=== PATIENT | female | born 2000 | race Caucasian/White ===

== ENCOUNTER → 2020-06-14 09:30 | Outpatient (BNVA) | payer OTHER, SELFPAY | PROVIDERS: Visit Provider Physician Assistant | DX: M72.2 Plantar fascial fibromatosis (principal) | CPT/HCPCS: 99203 ==

== ENCOUNTER 2020-10-24 16:29 | Emergency (ER) | payer OTHER, SELFPAY ==
--- NOTE | 2020-10-24 16:57 | PC.NURSE ---
THIS E [employer]ER[employer] ARCHITECT ESCORTS PATIENT INTO TRIAGE ROOM UPON ARRIVAL TO CLEAN AND REDRESS LACERATION TO FINGER. NON-ADHESIVE,STERILE GAUZE, AND WRAPPED. WHEN UNCOVERED BLEEDING UNCONTROLLED. BANDAGE CURRENTLY SHOWING NO SIGNS OF BLEEDING UNDERNEATH.
[2020-10-24 19:45] VITALS: BP 111/64; PULSE 76; RESP 16; TEMP 36.7; O2SAT 100; BMI 29.7
[2020-10-24] MEDS: Ibuprofen 600 MG TABLET PO (20:19)
[2020-10-24] MEDS: Lidocaine HCl 1 % MPF 5 ML VIAL SUBCUT (20:19)
--- NOTE | 2020-10-24 20:26 | ED.WOUNDLAC ---
HPI - Wound/Laceration General Chief Complaint: Wound/Laceration Stated Complaint: FINGER LAC Time Seen by Provider: 10/24/20 20:04 Source: patient Mode of arrival: ambulatory Limitations: no limitations History of Present Illness HPI narrative: 20-year-old female presenting to the ED with complaints of laceration to her left hand middle finger after attempting to stab ice cream to soften it prior to arrival. Denies any other symptoms complaints or concerns. Reports she is up-to-date on tetanus. Onset (ago): hour(s) (Few hours prior to arrival) Location: other (Left hand middle finger) Place: home Patient tetanus UTD: Yes Context: accidental Associated symptoms: pain Treatments prior to arrival: bandage Related Data Previous Rx's Medication Instructions Recorded boot 1 mg .ROUTE .qhs #1 units 06/14/20 ibuprofen 800 mg PO Q8H PRN #14 tab 10/24/20 oxycodone-acetaminophen [Percocet] 1 tab PO Q6H PRN #10 tab 10/24/20 Allergies Allergy/AdvReac Type Severity Reaction Status Date / Time No Known Allergies Allergy Verified 06/14/20 09:36 Review of Systems Review of Systems: Constitutional : No Fever, No Chills, Cardiovascular : No Chest Pain, No SOB Respiratory : No Dyspnea Gastrointestinal : No abdominal pain Musculoskeletal : No Joint Swelling Skin : positive skin laceration, No Foreign bodies, No rash, No surrounding erythema Neuro : No Weakness, No Numbness/tingling Psych : No SI/HI/thoughts of self injury Yes all other systems are reviewed and are negative [facility] Past Medical History Attestation statement: The following information was validated with the patient. Surgical History [place] teeth extracted Social History Social History Alcohol intake: never Smoked in Last 30 Days: No Use of substances other than those prescribed or required for medical reasons: No Any prior treatment program specific to substance use: No Advance Directives: No Advance Directives Information Provided: No Current occupation: Direct staff support, takes care of disabled people Physical Exam Vital Signs: Vital Signs: Last Vital Signs Temp 98.1 F 10/24/20 19:45 Pulse 76 10/24/20 19:45 Resp 16 10/24/20 19:45 BP 111/64 10/24/20 19:45 Pulse Ox 100 10/24/20 19:45 Body Mass Index 29.7 vital signs have been reviewed as normal and appeared to be correct. Blood pressure normal. Heart rate normal. Respiration rate normal. Temperature normal. Oxygen saturation normal. Appearance: Alert. Oriented X3. No acute distress. Head: Normal external exam. Normocephalic. Atraumatic. Eyes: PERRLA. EOMI. Conjunctiva and sclera normal. Eyelids normal. ENT: Pharynx normal. Uvula midline. Moist mucous membranes. Neck: Normal inspection. Neck supple. FROM. No adenopathy. No meningeal signs. CVS: Normal heart rate and rhythm. Heart sound normal. No murmurs noted. Pulses normal throughout. Respiratory: No respiratory distress. Painless inspiration. Back: Full range of motion noted. Skin: 1 cm intermediate lack to left distal aspect of middle finger. No foreign bodies noted. No active bleeding noted. The rest of the Skin warm is and dry. Normal skin color. Normal skin turgor. No rashes/lesions noted. Extremities: Extremities exhibit normal range of motion. Extremities nontender. Neuro: Oriented X 3. No motor deficit. No sensory deficit. Reflexes normal. Course Course Course Narrative: Patient now status post laceration repair with [address]. Tetanus not indicated as patient is up today. No imaging indicated at this time. Will DC home with symptomatic treatment antibiotics along with instructions to return in 10-14 days for suture removal and to follow up prior if signs of infection. Patient understands agrees the plan. Procedures Laceration Laceration 1: Site: hand Side (If applicable): left Size (cm): 1 Description: linear and clean Depth: simple, single layer Local Anesthetic: lidocaine 1% Amount of anesthesia used (mL): 3 Pre-repair: wound explored, irrigated extensively and deep structures intact Skin layer closed with: nylon Size (cm): 5-0 Number of sutures: 3 Technique: simple, interrupted Discharge Plan Discharge Clinical Impression: Laceration Patient Disposition: Home, Self-Care Instructions: Finger Laceration (ED) Prescriptions: New ibuprofen 800 mg tablet 800 mg PO Q8H PRN (Reason: pain) Qty: 14 RF: 0 oxycodone-acetaminophen [Percocet] 5-325 mg tablet 1 tab PO Q6H PRN (Reason: pain) Qty: 10 RF: 0 No Action boot 1 mg .Route .qhs Qty: 1 RF: 0 Referrals: Michelle Macdonald PA [Emergency Midlevel Provider] - 10 days (For suture removal) Stand Alone Forms: Work/School Release Print Language: Persian
== END 2020-10-24 20:50 | disposition home or self-care (01) ==
PROVIDERS: Emergency Provider Emergency Medicine
DX: S61.412A Laceration without foreign body of left hand, initial encounter (principal); W26.9XXA Contact with unspecified sharp object(s), initial encounter; Y93.89 Activity, other specified; Y92.010 Kitchen of single-family (private) house as the place of occurrence of the external cause; Y99.9 Unspecified external cause status
CPT/HCPCS: 12001; 99284

== ENCOUNTER 2024-06-07 18:40 | Emergency (ER) | payer MEDICAID, SELFPAY ==
[2024-06-07 19:31] VITALS: BP 121/78; PULSE 71; RESP 18; TEMP 36.4; O2SAT 99; BMI 32.3
--- NOTE | 2024-06-07 19:31 | ED.GENADULT ---
HPI - General Adult General Chief complaint: Abdominal Pain Stated complaint: abd pain Time Seen by Provider: 06/07/24 21:03 Source: patient Mode of arrival: ambulatory Limitations: no limitations History of Present Illness ED Provider: KALYANI HPI narrative: 24 yo female with no sig PMH here with c/o 3 weeks intermittent epigastric pain into chest it is random. She cannot relate it to events. She notes she has intermittent nausea at times. She has no GIB symptoms. It occurs at any time. She did start PPI today x 1 but it hasn't helped. She has fam hx of gastric cancer but doesn't know how old it occurred or exactly who has it on her dad's side. She has no other PMH. She is waiting for a PCP. Has not seen GI doctor. No fevers, vomiting, diarrhea. MD complaint: epigastric pain Onset (ago): week(s) (3) Location: abdomen Radiation: other (chest) Severity: moderate Quality: burning and aching Pain Consistency: intermittent Relieving factors: none Exacerbating factors: none Associated symptoms: nausea/vomiting Treatments prior to arrival: none Related Data Previous Rx's ?Medication ?Instructions ?Recorded boot 1 mg .Route .qhs #1 units 06/14/20 ibuprofen 800 mg tablet 800 mg PO Q8H PRN pain #14 tabs 10/24/20 oxycodone-acetaminophen 5 mg-325 1 tab PO Q6H PRN pain #10 tabs 10/24/20 mg tablet (Percocet) omeprazole 20 mg capsule,delayed 20 mg PO BID #60 caps 06/07/24 release sucralfate 100 mg/mL oral 10 ml PO BID 10 days #200 mL 06/07/24 suspension (Carafate) Allergies Allergy/AdvReac Type Severity Reaction Status Date / Time No Known Allergies Allergy Verified 06/07/24 19:35 Review of Systems Review of Systems: Constitutional : No Weight loss, No Fever, No Chills ENT/Mouth : No sore throat, No Rhinorrhea Eyes: No Swelling, No Redness Cardiovascular : No Chest Pain, No SOB, No Edema Respiratory : No Cough, No Sputum, No Wheezing Gastrointestinal : Positive Nausea, no Vomiting, no Diarrhea, positive abdominal Pain, No Hematochezia, No Melena Genitourinary : No Dysuria, No Urinary Frequency, No Hematuria, No Urgency Musculoskeletal : No joint pain, No Myalgias, No Joint Swelling Skin : No Skin Lesions, No rash Neuro : No Weakness, No Numbness, No Dizziness, No Headache Psych : No Anxiety/Panic, No Depression All other systems reviewed and are negative. [facility] Past Medical History Attestation statement: The following information was validated with the patient. Source: old records reviewed Medical History Plantar fasciitis of right foot Surgical History [place] teeth extracted Social History Social History Alcohol intake: never Advance Directives: No Advance Directives Information Provided: No Current occupation: Direct staff support, takes care of disabled people Physical Exam ED Vital Signs: Vital Signs - 24 hr 06/07/24 19:31 Temperature 97.6 F Pulse Rate 71 Respiratory Rate 18 Blood Pressure 121/78 Pulse Oximetry 99 Oxygen Delivery Method Room Air BMI result Body Mass Index 32.3 Appearance: Alert. Oriented X3. No acute distress. Eyes: Pupils equal, round and reactive to light. ENT: Pharynx normal. Neck: Normal inspection. Neck supple. CVS: Normal heart rate and rhythm. Pulses normal. Respiratory: No respiratory distress. Breath sounds normal. Abdomen: Soft and nontender. Skin: Skin warm and dry. Normal skin color. Normal skin turgor. Extremities: No lower extremity edema. No calf ttp Neuro: Oriented X 3. No motor deficit. No sensory deficit. Course Course Course Narrative: This is a rapid medical exam performed by Radha Farley NP: Additional HPI, ROS, PE not included below will be deferred to primary provider. Patient is a 24-year-old female presenting to the ED with complaint of epigastric pain for the past 3 weeks. States symptoms unchanged by eating, laying down. Nausea without vomiting. Denies fevers. Reports strong family history of gastric cancer. Plan: labs Medical Decision Making Medical Decision Making [facility] Narrative: 24 yo female with no sig PMH here with c/o epigastric intermittent burning pain on and off no GIB symptoms reported she is not toxic at this time will obtain basic labs and start on PPI BID and carafate. Discussed close PCP follow up and GI follow up as well as dietary and lifestyle changes Differential Diagnosis Differential Diagnoses: The differential diagnosis associated with the presentation includes GERD, gastritis, Fe deficiency anemia Admission/Observation Consideration of admission/observation: Escalation of care including admission/observation considered not toxic, tolerating PO can be managed as outpatient Lab Data MDM Lab Attestation statement: I reviewed the patient's lab results. 06/07/24 20:04 06/07/24 20:04 Labs: Lab Results 06/07/24 Range/Units 20:04 WBC 10.3 (4.8-10.8) X10*3/uL RBC 4.72 (4.20-5.50) X10*6/uL Hgb 10.4 L (12.0-16.0) g/dl Hct 33.9 L (37.0-47.0) % MCV 71.8 L (80.0-98.0) fL MCH 22.0 L (27.0-33.0) pg MCHC 30.7 L (31.0-35.0) g/dl RDW 19.8 H (11.0-16.0) % Plt Count 337 (160-400) X10*3/uL MPV 10.6 (9.4-12.3) fL Immature Gran % (Auto) 0.2 (0.0-0.4) % Neut % (Auto) 68.3 (45-73) % Lymph % (Auto) 22.6 (20-40) % Wheeler % (Auto) 6.6 (2-11) % Eos % (Auto) 1.9 (0-4) % Baso % (Auto) 0.4 (0-2) % Lymph # (Auto) 2.3 (1.2-4.9) X10*3/uL Wheeler # (Auto) 0.7 (0.1-1.2) X10*3/uL Eos # (Auto) 0.2 (0.0-0.4) X10*3/uL Baso # (Auto) 0.0 (0.0-0.2) X10*3/uL Abs Immat Gran (auto) 0.02 (0.00-0.03) X10*3/uL Absolute Neuts (auto) 7.0 (2.0-8.3) x10*3/uL Absolute Nucleated RBC 0.000 (0.0-0.012) X10*3/uL Nucleated RBC % (auto) 0.0 (0.0-0.2) /100WBC Sodium 140 (135-145) mmol/L Potassium 4.2 (3.3-5.1) mmol/L Chloride 107 (96-108) mmol/L Carbon Dioxide 23 (22-29) mmol/L Anion Gap 14 (12-20) BUN 11 (9-16) mg/dL Creatinine 0.76 (0.5-1.4) mg/dL Estim Creat Clear Calc 97.2 Estimated GFR > 60 Random Glucose 95 (60-115) mg/dL Calcium 9.6 (8.4-10.2) mg/dL Total Bilirubin 0.4 (0.0-1.0) mg/dL AST 12 (5-31) U/L ALT 13 (0-31) U/L Alkaline Phosphatase 74 (39-117) U/L Total Protein 8.0 (6.5-8.0) g/dL Albumin 4.3 (3.5-5.0) g/dL Beta HCG, Quant < 2 mIU/mL External Record Review External record reviewed: Office record Prescription Management I considered prescription management with: Other Discharge Plan Discharge Clinical Impression: Esophagitis Patient Disposition: Home, Self-Care Instructions: Esophagitis (ED) Additional Instructions: return for any worsening symptoms mild anemia increase dietary Fe (iron) you will need to start on omeprazole twice a day for 1 month follow up with your primary care doctor start carafate for 10 days avoid any NSAIDs - Tylenol is okay follow up with GI doctor given your family history Prescriptions: New sucralfate [Carafate] 100 mg/mL suspension 10 ml PO BID 10 Days Qty: 200 0RF omeprazole 20 mg capsule,delayed release(DR/EC) 20 mg PO BID Qty: 60 0RF No Action ibuprofen 800 mg tablet 800 mg PO Q8H PRN (Reason: pain) Qty: 14 0RF oxycodone-acetaminophen [Percocet] 5-325 mg tablet 1 tab PO Q6H PRN (Reason: pain) Qty: 10 0RF boot 1 mg .Route .qhs Qty: 1 0RF Rx Instructions: for use at night Referrals: Fidel Elder MD [Physician] - Print Language: Swazi
[2024-06-07 20:08] LABS: MANUAL DIFF FLAG NO
[2024-06-07 20:11] LABS: Basophils Percent Auto 0.4 % (0-2); Eosinophils Absolute Auto 0.2 X10*3/uL (0.0-0.4); Eosinophils Percent Auto 1.9 % (0-4); Hematocrit 33.9 % (37.0-47.0); Hemoglobin 10.4 g/dl (12.0-16.0); Imm Gran Abs Auto 0.02 X10*3/uL (0.00-0.03); Imm Gran Pct Auto 0.2 % (0.0-0.4); Lymphocytes Absolute Auto 2.3 X10*3/uL (1.2-4.9); Lymphocytes Percent Auto 22.6 % (20-40); Mean Corpuscular HGB Conc 30.7 g/dl (31.0-35.0); Mean Corpuscular Volume 71.8 fL (80.0-98.0); Mean Platelet Volume 10.6 fL (9.4-12.3); Monocytes Absolute Auto 0.7 X10*3/uL (0.1-1.2); Monocytes Percent Auto 6.6 % (2-11); Neutrophils Percent Auto 68.3 % (45-73); Platelet Count 337 X10*3/uL (160-400); Red Blood Count 4.72 X10*6/uL (4.20-5.50); Red Cell Distribution Width 19.8 % (11.0-16.0); White Blood Count 10.3 X10*3/uL (4.8-10.8)
[2024-06-07 20:33] LABS: Alanine Aminotransferase 13 U/L (0-31); Albumin Level 4.3 g/dL (3.5-5.0); Alkaline Phosphatase 74 U/L (39-117); Anion Gap 14 (12-20); Aspartate Amino Transferase 12 U/L (5-31); Bilirubin Total 0.4 mg/dL (0.0-1.0); Blood Urea Nitrogen 11 mg/dL (9-16); Calcium 9.6 mg/dL (8.4-10.2); Carbon Dioxide 23 mmol/L (22-29); Chloride 107 mmol/L (96-108); Creatinine Clr Calc Pharmacy 97.2; Estimated Glomerular Filt Rate > 60; Glucose Random 95 mg/dL (60-115); Potassium 4.2 mmol/L (3.3-5.1); Sodium 140 mmol/L (135-145)
[2024-06-07 20:39] LABS: HCG Quantitative < 2 mIU/mL
[2024-06-07 21:43] LABS: Lipase 18 U/L (8-78)
[2024-06-07 21:56] VITALS: BP 121/78; PULSE 71; RESP 18; TEMP 36.4; O2SAT 99
== END 2024-06-07 21:56 | disposition home or self-care (01) ==
PROVIDERS: Registered Nurse Emergency; Emergency Provider Emergency Medicine
DX: K20.90 Esophagitis, unspecified without bleeding (principal); R10.13 Epigastric pain
CPT/HCPCS: 36415; 80053; 83690; 84702; 85025; 99282; 99283

== ENCOUNTER 2024-11-28 11:26 | Outpatient (REF) | payer MEDICAID, SELFPAY ==
[2024-11-28 14:01] LABS: Estimated Average Glucose 114 mg/dL; Hemoglobin A1c % 5.6 % (<6.0)
[2024-11-28 14:14] LABS: Alanine Aminotransferase 17 U/L (0-31); Albumin Level 4.2 g/dL (3.5-5.0); Alkaline Phosphatase 74 U/L (39-117); Anion Gap 9 (12-20); Aspartate Amino Transferase 16 U/L (5-31); Bilirubin Total 0.4 mg/dL (0.0-1.0); Blood Urea Nitrogen 7 mg/dL (9-16); Calcium 9.6 mg/dL (8.4-10.2); Carbon Dioxide 27 mmol/L (22-29); Chloride 107 mmol/L (96-108); Estimated Glomerular Filt Rate > 60; Glucose Random 98 mg/dL (60-115); Potassium 4.2 mmol/L (3.3-5.1); Sodium 139 mmol/L (135-145); Total Protein 7.7 g/dL (6.5-8.0)
[2024-11-28 14:24] LABS: HIV AB/AG Nonreactive (Nonreactive); HIV Num 1 0.06 S/CO (0.00-0.99); ~HepC Num1 0.22 S/CO (0.00-0.79); ~Hepatitis C Antibody Nonreactive (Nonreactive)
[2024-11-28 14:44] LABS: CT PCR NOT DETECTED (Not Detect.); NG PCR NOT DETECTED (Not Detect.)
[2024-11-29 09:53] LABS: RPR Rapid Plasma Reagin NON-REACTIVE (NON-REACTIVE)
== END 2024-11-28 11:27 | disposition home or self-care (01) ==
LOC: HO.HHCL 11:26
PROVIDERS: Visit Provider General Practice
DX: A64 Unspecified sexually transmitted disease (principal); E66.3 Overweight
CPT/HCPCS: 80053; 83036; 84443; 86592; 86803; 87389; 87491; 87591

== ENCOUNTER 2025-01-23 17:11 | Outpatient (REF) | payer MEDICAID, SELFPAY ==
--- OUTSIDE RECORDS SUMMARY | 2025-01-23 17:13 | XMS_ITS | Clinical Summary ---
Author Organization [employer] Address [address] [facility] [address] [place] [address] Care Team Providers Care Landscape Gardener Name Role Phone Cyndee De Leon MD Primary Care Provider [phone] Allergies No known active allergies Medications * This document contains information received from the source organization and may not represent a complete record from that organization. sucralfate (Carafate) 1 GM/10ML suspension TAKE 2 TEASPOONSFUL (10 ML) BY MOUTH 2 TIMES A DAY FOR 10 DAYS 4 Active omeprazole (PriLOSEC) [address] capsuleIndicati ons:Gastritis, presence of bleeding unspecified, unspecified chronicity, unspecified gastritis type Take 1 capsule (20 mg) by mouth before breakfast. 90 capsule 4 Active traZODone (Desyrel) 50 MG tablet Take 1 tablet (50 mg) by mouth at bedtime. 90 tablet 5 02/27/20 25 Active topiramate (Topamax) 25 MG tabletIndicatio ns:Class 1 obesity Take 1 tablet (25 mg) by mouth at bedtime. 60 tablet 2 5 07/22/20 25 Active Active Problems Problem Noted Date Diagnosed Date Class 1 obesity 01/23/2025 Epigastric discomfort 01/23/2025 Family history of gastric cancer 01/23/2025 Unwanted fertility 01/23/2025 Anxiety 11/28/2024 Recurrent major depressive disorder 11/28/2024 Assessment & Plan (12/04/2024 10:31 AM EDT): Connected patient with Skyler Duncan for immediate safety check and referral to OP therapy and prescriber services Complimented patient on her ability/willingness to get into psych care and self-awareness around that Personal history of nonsuicidal self-harm 2024 Gastritis 06/13/2024 Assessment & Plan (06/13/2024 10:25 AM EDT): Abd/chest pain for multiple weeks. -re-prescribed Omeprazole 20 mg. -recommended to stop drinking [employer] coffee due to severe acidity and likely main cause of symptoms. -ordered H. Pylori test. -referred to GI. -ER precautions given. Iron deficiency anemia 06/13/2024 Assessment & Plan (06/13/2024 10:31 AM EDT): -discussed taking iron supplements after stopping coffee and trailing omeprazole due to likely an of causing worsened stomach pain. Also recommended to avoid ibuprofen. Anemia 09/02/2018 Overview (01/23/2025): FeSO4 ordered Encounter for supervision of other normal , third trimester 03/11/2018 Overview (01/23/2025): 1. [facility] site: [place] [address] 2. Delivery site: [facility] 3. Dating criteria: LMP confirmed by 1st trimester ultrasound 3. Blood type: O- rhogam 08/29/18 4. Genetic screening: Date: 04/29/18 Result: Positive for DS , 05/30/18 AFP negative 5. GBS: Date: 10/19/18 POSITIVE GBS 6. FOB name: Tyler 7. Plans A. Epidural or other pain management - B. Labor support identified - C. Tdap - Date: 09/08/17 D. Breast or Bottle feed: breast E. Baby's name -Carlos F. Circumcision - yes Rh negative state in antepartum period 8 Overview (01/23/2025): Rhogam received 08/29/2018 Pt currently 29w0d Depressive disorder 02/26/2012 Overweight 02/26/2012 Encounters * This document contains information received from the source organization and may not represent a complete record from that organization. Date Type Department Care Team Description 01/23/2025 9:00 AM EDT Office Visit [address] [address] Cyndee De Leon MD Class 1 obesity (Primary Dx); Screening for cervical cancer 01/23/2025 Travel 01/22/[address] [address] Cyndee De Leon MD Chart Prep 01/15/2025 Patient Outreach [address] [phone] Cyndee De Leon MD Pre-visit Planning (SDOH screening completed on 11/20/2024) 01/08/[address] [address] Cyndee De Leon MD Medication Question 12/14/[address] [address] Cyndee De Leon MD Results 11/28/2024 9:45 AM EDT Office Visit [address] [address] Cyndee De Leon MD Severe episode of recurrent major depressive disorder, with psychotic features (CMS/HCC) (Primary Dx); Overweight; Sexually transmitted infection; Dietary counseling; Exercise counseling; Personal history of nonsuicidal self-harm 11/28/2024 Travel 11/20/2024 Patient Outreach [address] [address] Cyndee De Leon MD Pre-visit Planning (SDOH screening negative and tobacco screening negative) 11/17/20[address] [facility] () [address] [phone] Provider, Population Health Generic from Last 3 Months Immunizations Immunization Administration Dates Next Due DTaP 04/03/2003, 0,1998,10/30,1998 HPV, Quadrivalent 08/19/2010,12/31/2009,10/29/19 10 Hep A, ped/adol, 2 dose 02/24/2013,03/11/2012 Hep B, Adolescent or Pediatric 1998 Hib (HbOC) 03/03/2000, 9,1998,08/15 IPV 04/03/2003, 9,1998,08/15 Influenza Injectable Quadriv alant Preservative Free IIV4 MDCK 06/28/2018 Influenza injectable quadriv alent preservative free 07/05/2014 Influenza, IIV3, injectable 08/19/2010 Influenza, Split (incl. allen fied surface antigen) 08/16/2013,08/22/2012 MMR 03/21/2009,04/03/2003 Meningococcal MCV4P ACYW-135 12/11/2010 Tdap 09/09/2018,02/12/2017,08/23/2009 Varicella 07/26/2007,03/21/1999 Family History Medical History Relation Name Comments Diabetes Father Diabetes Maternal Grandmother Hypertension Maternal Grandmother Relation Name Status Comments Father Maternal Grandmother Social History Tobacco Use Types Packs/Day Years Used Date Smoking Tobacco: Never Smokeless Tobacco: Never Alcohol Use Standard Drinks/Week Comments Never 0 (1 standard drink = 0.6 oz pur e alcohol) Alcohol Answer Date Recorded How often do you have a drink containing alcohol ? 1 12/04/2024 How many drinks containing a lcohol do you have on a typical day when you are drinking? 0 12/04/2024 How often do you have six or more drinks on one occasion? 0 12/04/2024 Depression Answer Date Recorded Patient Health Questionnaire-9 Score 0 01/23/2025 Patient Health Questionnaire-9 Score 0 01/23/2025 Last PHQ-9: Questionnaire Data Not on file 0 01/23/2025 Housing Stability Answer Date Recorded What is your housing situation today? I have benjamin mijares 11/20/[address] you li ve. Do you have problems with any of the following? None of the above 11/20/2024 Food Insecurity Answer Date Recorded Within the past 12 months, y ou worried that your food would run out before you got money to buy more: Never True 11/20/2024 Within the past 12 months,th e food you bought just didn't last and you didn't have enough money to get more: Never True Transportation Answer Date Recorded In the past 12 months, has l ack of transportation kept you from medical appts, meetings, work or from getting things needed for daily living? No 11/20/2024 Utilities Answer Date Recorded In the past 12 months, has t he electric, gas, oil or water company threatened to shut off services in your home? No 11/20/2024 Depression Answer Date Recorded Patient Health Questionnaire-2 Score 0 01/23/2025 Internet Access Answer Date Recorded Internet Access Q1 Yes 11/20/2024 Internet Access Q2 Not on file 11/20/2024 Comments No Intention Date Recorded No desire to become (finding) 0 11/28/2024 Sex and Gender Information Value Date Recorded Sex Assigned at Female 07/06/2022 10:15 AM EDT Legal Sex Female 10:15 AM EDT Gender Identity Female 12/04/2024 10:31 AM EDT Sexual Orientation Choose not to disclose 2023 1:26 PM EDT Sexual Orientation Straight 06/05/2024 1: 26 PM EDT Last Filed Vital Signs Vital Sign Reading Time Taken Comments Blood Pressure 109/65 01/23/2025 8:51 AM EDT Pulse 81 01/23/2025 8:51 AM EDT Temperature 36.3 ??C (97.4 ??F) 01/23/2025 8:51 AM ED T Respiratory Rate 18 01/23/2025 8:51 AM EDT Oxygen Saturation 100% 01/23/2025 8:51 AM EDT Inhaled Oxygen Concentration - - Weight 77.4 kg (170 lb 9.6 oz) 01/23/2025 8:51 A M EDT Height 149.9 cm (4' 11 ) 01/23/2025 8:51 AM EDT Body Mass Index 34.46 01/23/2025 8:51 AM EDT Plan of Treatment Upcoming Encounters Date Type Department Care Team (Late st Contact Info) Description 03/13/2025 11:30 AM EDT Telemedicine [facility] [address] [place] [address] Cyndee De Leon MD [address] [place] [address] Health Maintenance Due Date Last Done Comments Hepatitis B Vaccines (2 of 3 - 3-dose series) 01/28/1999 1998, 08/15/1995, 1995 Pap Smear 2019 COVID-19 Vaccine ( season) 2024 01/15/2022, 09/10/2021, 08/20/2021 Influenza Vaccine (#1) 2024 8, 07/05/2014, 08/16/2013, Additional history exists SDOH Screening 11/20/2025 11/20/2024 Disability Screening 11/28/2025 11/28/2024 Alcohol/Substance Use Screening 12/04/2025 12/04/2024 Family Planning (PISQ) 12/04/2025 12/04/2024 Depression Screening 01/23/2026 01/23/2025, 01/24/20 Tobacco Screening 01/23/2026 01/23/2025 DTaP/Tdap/Td Vaccines (9 - Td or Tdap) 09/09/2028 09/09/2018, 02/12/2017, 08/23/2009, Additional history exists Zoster Vaccines (1 of 2) 02/15/2048 RSV Patients and Patients Aged 60 years or older (1 - 1-dose 75+ series) 2073 HIB Vaccines Completed 03/03/2000, 12/06, 1998, Additional history exists IPV Vaccines Completed 04/03/2003, 12/06, 1998, Additional history exists HPV Vaccines Completed 08/19/2010, 12/06, 10/29/2009 Meningococcal Vaccine Aged Out 12/11/2010 No priti artem eligible based on patient's age to complete this topic Hepatitis A Vaccines Completed 02/24/2013, 03/11/20 12 HIV Screening Completed 11/28/2024 Hepatitis C Screening Completed 11/28/2024 Meningococcal B Vaccine Aged Out No l onger eligible based on patient's age to complete this topic Pneumococcal Vaccine: Pediatrics (0 to 5 Years) and At-Risk Patients (6 to 49) Years) Aged Out No longer eligible based on patient's age to complete this topic RSV under 20 months Aged Out No longe r eligible based on patient's age to complete this topic Rotavirus Vaccines Aged Out No longer eligible based on patient's age to complete this topic Procedures Procedure Name Priority Date/Time Associated Diagnosis Comments RPR (MONITOR) W/REFL TITER Routine 11/28/2024 11:30 AM EDT Sexually transmitted infection HIV 1/2 ANTIGEN/ANTIBODY, FOURTH GENERATION W/RFL Routine 11/28/2024 11:30 AM EDT Sexually transmitted infection HEPATITIS C AB W/REFL TO HCV RNA, QN, PCR Routine 11/28/2024 11:30 AM EDT Sexually transmitted infection COMPREHENSIVE METABOLIC PANEL Routine 11/28/2024 11:30 AM EDT Overweight HEMOGLOBIN A1C Routine 11/28/2024 11:30 AM EDT Overweight TSH W/REFLEX TO FT4 Routine 11/28/2024 1 1:30 AM EDT Overweight CHLAMYDIA/N. GONORRHOEAE RNA, TMA, UROGENITAL Routine 11/28/2024 11:30 AM EDT Sexually transmitted infection from Last 3 Months Results * TSH W/Reflex to FT4 (11/28/2024 11:30 AM EDT) TSH reflex Free T4 1.40 0.32 - 4.0 uIU/mL [facility] Blood Venous blood specimen / Unknown 11/28/2024 11:30 AM EDT 11/28/2024 1:38 PM EDT us Cyndee De Leon MD LAB BLOOD ORDERABLES Final Res ult [facility] [address] [place] [phone] * Hepatitis C Antibody with Reflex to HCV, RNA, Quantitative, Real-Time PCR (11/28/2024 11:30 AM EDT) Hepatitis C Antibody Nonreactive Nonreactive [facility] Comment:Antibodies to HCV no t detected; does not exclude early acuteHCV infection. Blood Venous blood specimen / Unknown 11/28/2024 11:30 AM EDT 11/28/2024 1:38 PM EDT us Cyndee De Leon MD LAB BLOOD ORDERABLES Final Res ult [facility] [address] [place] [phone] [phone] * Chlamydia/N. Gonorrhoeae RNA, TMA, Urogenitial (11/28/2024 11:30 AM EDT) CT PCR NOT DETECTED Not Detect. [facility] Comment:A not detected test result does not exclude the possibilityof infection because test results can be affected byimproper specimen collection, concurrent antibiotic therapy,or the number of organisms in the specimen which may bebelow the sensitivity of the test. As with many diagnostictests, results from the Xpert CT/NG assay should beinterpreted in conjunction with other laboratory andclinical data available to the clinician.Xpert CT/NG performance has not been evaluated in patientsless than 14 years of age. The assay should not be used forthe evaluationof suspected sexual abuse or for other medico-legalindications. Additional testing is recommended in anycircumstance when false positive or false negative resultscould lead to adverse medical, social or psychologicalconsequences. NG PCR NOT DETECTED Not Detect. [facility] Comment:A not detected test result does not exclude the possibilityof infection because test results can be affected byimproper specimen collection, concurrent antibiotic therapy,or the number of organisms in the specimen which may bebelow the sensitivity of the test. As with many diagnostictests, results from the Xpert CT/NG assay should beinterpreted in conjunction with other laboratory andclinical data available to the clinician.Xpert CT/NG performance has not been evaluated in patientsless than 14 years of age. The assay should not be used forthe evaluationof suspected sexual abuse or for other medico-legalindications. Additional testing is recommended in anycircumstance when false positive or false negative resultscould lead to adverse medical, social or psychologicalconsequences. Urine (Urine, Random) 11/28/2024 11:30 AM EDT 11/28/2024 1:05 PM EDT Narrative [facility] - 11/28/2024 2:44 PM EDT Urine Cyndee De Leon MD LAB MICROBIOLOGY - GENERAL ORD ERABLES Final Result Performing Organization Address [facility]/ZIP Co de Phone Number [facility] [address] [place] [phone] * RPR (Monitor) with Reflex to??Titer (11/28/2024 11:30 AM EDT) RPR (Monitor) w/Refl Titer NON-REACTI VE NON-REACT JONES [facility] Comment:THIS TEST WAS PERFOR MED AT:[employer] [place] [phone] SULLIVAN MD Rapid Plasma Reagin Ab Titer TNP [facility] Blood Venous blood specimen / Unknown 11/28/2024 11:30 AM EDT 11/28/2024 1:38 PM EDT Cyndee De Leon MD LAB BLOOD ORDERABLES Final Res ult Performing Organization Address [facility] Co de Phone Number [facility] [address] [place] [phone] * HIV-1/2 Antigen and Antibodies, Fourth Generation, with Reflexes (11/28/2024 11:30 AM EDT) HIV AB/AG Nonreactive Nonreactive [facility] Comment:HIV-1 p24 Ag and/or HIV-1/HIV-2 Ab not detected.A test result that is nonreactive does not exclude thepossibility of exposure to or infection with HIV-1 and/orHIV-2. Nonreactive results in this assay for individualswith prior exposure to HIV-1 and/or HIV-2 may be due toantigen and antibody levels that are below the limit ofdetection of this assay.The [employer] HIV Ag/Ab Combo assay result andsupplemental assay results should be interpreted inconjunction with the patient's clinical presentation,history and other laboratory results. If the results areinconsistent with clinical evidence, additional testing issuggested to confirm the result. Blood Venous blood specimen / Unknown 11/28/2024 11:30 AM EDT 11/28/2024 1:38 PM EDT Cyndee De Leon MD LAB BLOOD ORDERABLES Final Res ult Performing Organization Address [facility] Co de Phone Number [facility] [address] [place] [phone] * Hemoglobin A1c (11/28/2024 11:30 AM EDT) Hemoglobin A1c 5.6 <6.0 % [facility] Comment:Hemoglobin A1C Refer ence Range Adults: 4.8 - 6.0 % Non diabetic: < 6.0 % Goal: < 7.0 %Additional Action Suggested: > 8.0 %Note: Hemoglobin A1c results are invalid for patients with abnormal amounts of HbF. Blood transfusions may impact the HbA1c concentration in the patient sample. Estimated Average Glucose 114 mg/dL [facility] Comment:eAG = Estimated ave rage glucose which is %A1C expressed asaverage glucose, using the formula of the J2T-CeeqecgDtdobaw Glucose study (ADAG), Diabetes Care, Vol.31,#8,Apr. 2007 Blood Venous blood specimen / Unknown 11/28/2024 11:30 AM EDT 11/28/2024 1:38 PM EDT Cyndee De Leon MD LAB BLOOD ORDERABLES Final Res ult Performing Organization Address [facility] Co de Phone Number [facility] [address] [place] [phone] [phone] * (ABNORMAL) Comprehensive Metabolic Panel (11/28/2024 11:30 AM EDT) Sodium 139 135 - 145 mmol/L [facility] Potassium 4.2 3.3 - 5.1 mmol/L [facility] Chloride 107 96 - 108 mmol/L [facility] Carbon Dioxide 27 22 - 29 mmol/L [facility] Anion Gap 9(L) 12 - 20 [facility] Urea Nitrogen (BUN) 7(L) 9 - 16 mg/dL [facility] Creatinine, Serum 0.71 0.5 - 1.4 mg/dL [facility] Estimated Glomerular Filt Rate >60 [facility] Comment:Chronic Kidney Disea se: Estimated GFR < 60 mL/min/1.71h7Qohhre Kidney Disease: Estimated GFR < 15 mL/min/1.73m2 Glucose 98 60 - 115 mg/dL [facility] Calcium 9.6 8.4 - 10.2 mg/dL [facility] Bilirubin, Total 0.4 0.0 - 1.0 mg/dL [facility] Aspartate Amino Transferase 16 5 - 31 U/L [facility] Alanine Aminotransferase 17 0 - 31 U/L [facility] Total Protein 7.7 6.5 - 8.0 g/dL [facility] Albumin Level 4.2 3.5 - 5.0 g/dL [facility] Alkaline Phosphatase 74 39 - 117 U/L [facility] Blood Venous blood specimen / Unknown 11/28/2024 11:30 AM EDT 11/28/2024 1:38 PM EDT us Cyndee De Leon MD LAB BLOOD ORDERABLES Final Res ult [facility] [address] [place] [phone] from Last [address] [facility] Care Teams Landscape Gardener Relationship Specialty Start Date End Date Cyndee De Leon MD [address] [place] [address] PCP - General Family Medicine 11/28/24
--- OUTSIDE RECORDS SUMMARY | 2025-01-23 17:13 | XMS_ITS | Encounter Summary ---
Author Organization [employer] Address [address] [facility] [address] [place] [address] Care Team Providers Care Manifold Operator Name Role Phone Cyndee De Leon MD Primary Care Provider [phone] Encounter Details Date Type Department Care Team (Latest Contact Info) Description 01/23/2025 Travel Social History Tobacco Use Types Packs/Day Years [...] Q2 Not on file 11/20/2024 Comments No Sex and Gender Information Value Date Recorded Sex Assigned at Female 07/06/2022 10:15 AM EDT Legal Sex Female 10:15 AM EDT Gender Identity Female 12/04/2024 10:31 AM EDT Sexual Orientation Choose not to disclose 2023 1:26 PM EDT Sexual Orientation Straight 06/05/2024 1: 26 PM EDT documented as of this encounter Functional Status * Over the past 2 weeks, how often have you been bothered by any of the following problems? Question Answer Date of Assessment Author Patient Health Questionnaire-2 Score 0 01/23/2025 8:59 AM EDT Maggi Romano MA * Little interest or pleasure in doing things Answer Date of Assessment Author Not at all 01/23/2025 8:59 AM EDT Maggi Bragg MA * Feeling down, depressed, or hopeless Answer Date of Assessment Author Not at all 01/23/2025 8:59 AM EDT Maggi Bragg MA * Trouble falling or staying asleep, or sleeping too much Answer Date of Assessment Author Not at all 01/23/2025 8:59 AM EDT Maggi Bragg MA * Feeling tired or having little energy Answer Date of Assessment Author Not at all 01/23/2025 8:59 AM EDT Maggi Bragg MA * Poor appetite or overeating Answer Date of Assessment Author Not at all 01/23/2025 8:59 AM EDT Maggi Bragg MA * Feeling bad about yourself - or that you are a failure or have let yourself or your family down Answer Date of Assessment Author Not at all 01/23/2025 8:59 AM EDT Maggi Bragg MA * Trouble concentrating on things, such as reading the newspaper or watching television Answer Date of Assessment Author Not at all 01/23/2025 8:59 AM EDT Maggi Bragg MA * Moving or speaking so slowly that other people could have noticed? Or the opposite - being so fidgety or restless that you have been moving around a lot more than usual. Answer Date of Assessment Author Not at all 01/23/2025 8:59 AM EDT Maggi Bragg MA * Thoughts that you would be better off or hurting yourself in some way Answer Date of Assessment Author Not at all 01/23/2025 8:59 AM EDT Maggi Bragg MA * Patient Health Questionnaire-9 Score Answer Date of Assessment Author 0 01/23/2025 8:59 AM STANTONT Maggi Bragg MA * Over the last 2 weeks, how often have you been bothered by any of the following problems? Question Answer Date of Assessment Author Feeling nervous, anxious, or on edge 0 01/23/2025 8:59 AM EDT Maggi Romano MA Not being able to stop or control worrying 0 01/23/2025 8:59 AM STANTONT Maggi Roamno MA Worrying too much about different things 0 01/23/2025 8:59 AM EDT Maggi Romano MA Trouble relaxing 0 01/23/2025 8:59 AM EDT Maggi Verma MA Being so restless that it is hard to sit still 0 01/23/2025 8:59 AM STANTONT Maggi Romano MA Becoming easily annoyed or irritable 0 01/23/2025 8:59 AM STANTONT Maggi Romano MA Feeling afraid as if something awful might happen 0 01/23/2025 8:59 AM EDT Maggi Mckeon MA JENNY-7 Total Score 0 01/23/2025 8:59 AM STANTONT Maggi Romano MA documented as of this encounter Plan of Treatment Upcoming Encounters Date Type Department Care Team (Late st Contact Info) Description 03/13/2025 11:30 AM EDT Telemedicine [facility] [address] [place] [address] Cyndee De Leon MD [address] [place] [phone] documented as of this encounter Visit Diagnoses Not on filedocumented in this encounter Additional Health Concerns Assessment Noted Time PHQ-9 Depression Total Score: 0 01/24/20 8:59 AM EDT documented as of this encounter Care Teams Manifold Operator Relationship Specialty Start Date End Date Cyndee De Leon MD [address] [place] [address] PCP - General Family Medicine 11/28/24 documented as of this encounter
--- OUTSIDE RECORDS SUMMARY | 2025-01-23 17:13 | XMS_ITS | Encounter Summary ---
Author Organization [employer] Address [address] [place] [address] Care Team Providers Care Towel Rolling Machine Operator Name Role Phone Cyndee De Leon MD Primary Care Provider [phone] Reason for Visit * Reason Onset Date Comments Chart Prep 01/22/2025 Encounter Details Date Type Department Care Team ([facility] Contact Info) Description 01/22/2025 Telephone [facility] MEDICINE [address] [place], [place] [phone] Cyndee De Leon MD [address] [place], [place] [phone] Chart Prep Social History Tobacco Use Types Packs/Day Years [...] Access Q2 Not on file 11/20/2024 Comments Unknown Sex and Gender Information Value Date Recorded Sex Assigned at Female 07/06/2022 10:15 AM EDT Legal Sex Female 10:15 AM EDT Gender Identity Female 12/04/2024 10:31 AM EDT Sexual Orientation Choose not to disclose 2023 1:26 PM EDT Sexual Orientation Straight 06/05/2024 1: 26 PM EDT documented as of this encounter Miscellaneous Notes * Telephone Encounter - Isabella Rodríguez MA - 01/22/2025 8:54 AM EDT Chart Prep Labs: done Images: not applicable Referrals: not applicable Vaccines due: Covid, Flu, and Hep B Screenings: pap smear and LMP Overdue care gaps: No Updates documented in this encounter Plan of Treatment Upcoming Encounters Date Type Department Care Team (Late st Contact Info) Description 03/13/2025 11:30 AM EDT Telemedicine [facility] MEDICINE [address] [place] [address] Cyndee De Leon MD [address] [place] [address] documented as of this encounter Visit Diagnoses Not on filedocumented in this encounter Additional Health Concerns Assessment Noted Time PHQ-9 Depression Total Score: 16 025 10:33 AM EDT documented as of this encounter Care Teams Towel Rolling Machine Operator Relationship Specialty Start Date End Date Cyndee De Leon MD [address] [place] [address] PCP - General Family Medicine 11/28/24 documented as of this encounter
--- OUTSIDE RECORDS SUMMARY | 2025-01-23 17:14 | XMS_ITS | Encounter Summary ---
Author Organization [employer] Address [address] [place] [address] Care Team Providers Care Plastics Design Engineer Name Role Phone Cyndee De Leon MD Primary Care Provider [phone] Reason for Visit * Reason Comments Follow-up Weight Encounter Details Date Type Department Care Team ([facility] st Contact Info) Description 01/23/2025 9:00 AM EDT Office Visit [facility] MEDICINE [address] [place], [place] [phone] Cyndee De Leon MD [address] [place], [place] [phone] Class 1 obesity (Primary Dx); Screening for cervical cancer Social History Tobacco Use Types Packs/Day Years [...] PM EDT documented as of this encounter Last Filed Vital Signs Vital Sign Reading [...] Mass Index 34.46 01/23/2025 8:51 AM EDT documented in this encounter Functional Status * Over the past 2 weeks, how often have you been bothered by any of the following problems? Question Answer Date of Assessment Author Patient Health Questionnaire-2 Score 0 01/23/2025 8:59 AM EDT Maggi Romano [place] * Little interest or pleasure in doing things Answer Date of Assessment Author Not at all 01/23/2025 8:59 AM Maggi Quijano [place] * Feeling down, depressed, or hopeless Answer Date of Assessment Author Not at all 01/23/2025 8:59 AM Maggi Quijano [place] * Trouble falling or staying asleep, or sleeping too much Answer Date of Assessment Author Not at all 01/23/2025 8:59 AM Maggi Quijano [place] * Feeling tired or having little energy Answer Date of Assessment Author Not at all 01/23/2025 8:59 AM Maggi Quijano MA * Poor appetite or overeating Answer Date of Assessment Author Not at all 01/23/2025 8:59 AM Maggi Quijano [place] * Feeling bad about yourself - or that you are a failure or have let yourself or your family down Answer Date of Assessment Author Not at all 01/23/2025 8:59 AM Maggi Quijano MA * Trouble concentrating on things, such as reading the newspaper or watching television Answer Date of Assessment Author Not at all 01/23/2025 8:59 AM Maggi Quijano MA * Moving or speaking so slowly that other people could have noticed? Or the opposite - being so fidgety or restless that you have been moving around a lot more than usual. Answer Date of Assessment Author Not at all 01/23/2025 8:59 AM Maggi Quijano MA * Thoughts that you would be better off or hurting yourself in some way Answer Date of Assessment Author Not at all 01/23/2025 8:59 AM Maggi Quijaon MA * Patient Health Questionnaire-9 Score Answer Date of Assessment Author 0 01/23/2025 8:59 AM Maggi Quijano MA * Over the last 2 weeks, how often have you been bothered by any of the following problems? Question Answer Date of Assessment Author Feeling nervous, anxious, or on edge 0 01/23/2025 8:59 AM EDT Maggi Romano MA Not being able to stop or control worrying 0 01/23/2025 8:59 AM EDT Maggi Romano MA Worrying too much about different things 0 01/23/2025 8:59 AM EDT Maggi Romano MA Trouble relaxing 0 01/23/2025 8:59 AM EDT R Maggi Almendarez MA Being so restless that it is hard to sit still 0 01/23/2025 8:59 AM EDT Maggi Romano MA Becoming easily annoyed or irritable 0 01/23/2025 8:59 AM EDT Maggi Romano MA Feeling afraid as if something awful might happen 0 01/23/2025 8:59 AM EDT Maggi Mckeon MA JENNY-7 Total Score 0 01/23/2025 8:59 AM EDT Maggi Romano MA documented as of this encounter Plan of Treatment Upcoming Encounters Date Type Department Care Team (Late st Contact Info) Description 03/13/2025 11:30 AM EDT Telemedicine [facility] MEDICINE [address] [place] [phone] Cyndee De Leon MD [address] [place] [phone] Scheduled Orders Name Type Priority Associated Diagnoses Orde r Schedule HPV High Risk with Reflex to Subtypes Lab Routine Screening for cervical cancer Ordered: 01/23/2025 documented as of this encounter Visit Diagnoses Diagnosis Class 1 obesity- Primary Screening for cervical cancer Screening for malignant neoplasm of the cervix documented in this encounter Additional Health Concerns Assessment Noted Time PHQ-9 Depression Total Score: 0 01/24/20 8:59 AM EDT documented as of this encounter Care Teams Plastics Design Engineer Relationship Specialty Start Date End Date Cyndee De Leon MD [address] [place] [address] PCP - General Family Medicine 11/28/24 documented as of this encounter
[2025-01-26 14:26] LABS: HPV Genotype 16 Negative (Negative); HPV Genotype 18 Negative (Negative); HPV High Risk Positive (Negative)
== END 2025-01-23 17:12 | disposition home or self-care (01) ==
LOC: HO.LNP 17:11
PROVIDERS: Visit Provider General Practice
DX: Z12.4 Encounter for screening for malignant neoplasm of cervix (principal); R87.810 Cervical high risk human papillomavirus (HPV) DNA test positive
CPT/HCPCS: 87626; 88175

== ENCOUNTER 2025-05-01 15:25 | Outpatient (REF) | payer MEDICAID, SELFPAY ==
--- NOTE | ~2025-05-01 | XR_ITS ---
EXAMINATION: XR KNEE, RIGHT CLINICAL INFORMATION: bilateral knee pain, left worse than right COMPARISON: None available. TECHNIQUE: AP and lateral views of the right knee. Findings: Joint spaces are preserved. There are no soft tissue calcification. There is no joint effusion. There are no osteophytes. There is anatomic alignment of patella. XR/XR knee RT 3V Impression: Unremarkable right knee Electronically signed by: Rich Griffith MD 05/01/2025 04:32 PM EDT
--- NOTE | ~2025-05-01 | XR_ITS ---
EXAMINATION: XR KNEE, LEFT CLINICAL INFORMATION: bilateral knee pain, left worse than right COMPARISON: None available. TECHNIQUE: AP and lateral of the left knee. FINDINGS: Joint spaces are preserved. There are no soft tissue calcification. There is no joint effusion. There are no osteophytes. There is anatomic alignment of patella. XR/XR knee LT 3V IMPRESSION: Unremarkable left knee Electronically signed by: Rich Griffith MD 05/01/2025 04:32 PM EDT
--- OUTSIDE RECORDS SUMMARY | 2025-05-01 14:30 | XMS_ITS | Encounter Summary ---
Author Organization [employer] Address [address] [place] [address] Care Team Providers Care In Room Dining Server Name Role Phone Sahara Barajas MD Primary Care Provider [phone] Encounter Details Date Type Department Care Team (Late st Contact Info) Description 05/01/2025 2:30 PM EDT Office Visit [facility] MEDICINE [address] [place], [place] [phone] Sahara Barajas MD [address] [place], [place] [phone] Moderate recurrent major depression (CMS/HCC) (Primary Dx); JENNY (generalized anxiety disorder); Chronic pain of both knees; History of gestational diabetes Social History Tobacco Use Types Packs/Day Years [...] Answer Date Recorded Patient Health Questionnaire-9 Score 14 04/16/2025 Patient Health Questionnaire-9 Score 14 04/16/2025 Last PHQ-9: Questionnaire Data Not on file 0 04/16/2025 Housing Stability Answer Date Recorded What is [...] Answer Date Recorded Patient Health Questionnaire-2 Score 2 04/16/2025 Internet Access Answer Date Recorded Internet Access [...] Sign Reading Time Taken Comments Blood Pressure 110/70 05/01/2025 2:42 PM EDT Pulse 82 05/01/2025 2:42 PM EDT Temperature 36.2 C (97.1 F) 05/01/2025 2:42 PM EDT Respiratory Rate 20 05/01/2025 2:42 PM EDT Oxygen Saturation 99% 05/01/2025 2:42 PM EDT Inhaled Oxygen Concentration - - Weight 72.3 kg (159 lb 6.4 oz) 05/01/2025 2:42 P M EDT Height 149.9 cm (4' 11 ) 05/01/2025 2:42 PM EDT Body Mass Index 32.19 05/01/2025 2:42 PM EDT documented in this encounter Functional Status * Over the last 2 weeks, how often have you been bothered by any of the following problems? Question Answer Date of Assessment Author Feeling nervous, anxious, or on edge 3 05/01/2025 3:19 PM EDT Rebeka Duncan MA Not being able to stop or control worrying 3 05/01/2025 3:19 PM EDT Rebeka Duncan MA Worrying too much about different things 3 05/01/2025 3:19 PM EDT Rebeka Duncan MA Trouble relaxing 3 05/01/2025 3:19 PM EDT Aleja Granda MA Being so restless that it is hard to sit still 3 05/01/2025 3:19 PM EDT Rebeka Duncna MA Becoming easily annoyed or irritable 3 05/01/2025 3:19 PM EDT Rebeka Duncan MA Feeling afraid as if somethi ng awful might happen 3 05/01/2025 3:19 PM EDT Rebeka Duncan MA JENNY-7 Total Score 21 05/01/2025 3:19 PM EDT Aleja Duncan MA documented as of this encounter Plan of Treatment Upcoming Encounters Date Type Department Care Team (Late st Contact Info) Description 07/03/2025 10:45 AM EDT Office Visit [facility] MEDICINE [address] [place] [address] Sahara Barajas MD [address] [place] [address] Scheduled Orders Name Type Priority Associated Diagnoses Orde r Schedule XR Knee 3 Views Right Imaging Routine Chronic pain of both knees Expected: 05/01/2025, Expires: 05/01/2026 XR Knee 3 Views Left Imaging Routine Chronic pain of both knees Expected: 05/01/2025, Expires: 05/01/2026 Hemoglobin A1c Lab Routine History of gestational diabetes Expected: 05/01/2025 (Approximate), Expires: 05/01/2026 documented as of this encounter Visit Diagnoses Diagnosis Moderate recurrent major depression (CMS/HCC)- Primary Major depressive disorder, recurrent episode, moderate JENNY (generalized anxiety disorder) Generalized anxiety disorder Chronic pain of both knees History of gestational diabetes Personal history of other genital system and obstetric disorders documented in this encounter Additional Health Concerns Assessment Noted Time PHQ-9 Depression Total Score: 14 025 10:06 AM EDT documented as of this encounter Care Teams In Room Dining Server Relationship Specialty Start Date End Date Sahara Barajas MD [address] [place] [address] PCP - General Family Medicine 04/06/25 documented as of this encounter
--- OUTSIDE RECORDS SUMMARY | 2025-05-01 16:22 | XMS_ITS | Encounter Summary ---
Author Organization [employer] Address [address]t [place] [address] Care Team Providers Care Helmet Binder Name Role Phone Cyndee De Leon MD Primary Care Provider [phone] Sahara Barajas MD Primary Care Provider Reason for Visit * Reason Onset Date Comments Appointment Confirmation 03/21/2025 Appointment Request 03/21/2025 Encounter Details Date Type Department Care Team ([facility] Contact Info) Description 03/21/2025 Telephone [facility] MEDICINE [address] [place], [place] [phone] Cyndee De Leon MD [address] [place], [place] [phone] Appointment Confirmation; Appointment Request Social History Tobacco Use Types Packs/Day Years [...] encounter Miscellaneous Notes * Telephone Encounter - Geraldine Trejo - 03/21/2025 9:06 AM EDT Pt requesting an follow up appt. Pt was advised to follow up with doctor after walk in center visit. Contact pt at [phone] documented in this encounter Plan of Treatment Upcoming Encounters Date Type Department Care Team (Late st Contact Info) Description 07/03/2025 10:45 AM EDT Office Visit [facility] MEDICINE [address] [place] [address] Sahara Barajas MD [address] [place] [address] documented as of this encounter Visit Diagnoses Not on filedocumented in this encounter Additional Health Concerns Assessment Noted Time PHQ-9 Depression Total Score: 0 01/24/20 25 8:59 AM EDT documented as of this encounter Care Teams Helmet Binder Relationship Specialty Start Date End Date Cyndee De Leon MD [address] [place] [address] PCP - General Family Medicine 11/28/24 04/05/25 Sahara Barajas MD [address] [place] [address] PCP - General Family Medicine 04/06/25 documented as of this encounter
--- OUTSIDE RECORDS SUMMARY | 2025-05-01 16:22 | XMS_ITS | Encounter Summary ---
Author Organization [employer] Address [address] [place] [address] Care Team Providers Care Health Informatics Instructor Name Role Phone Sahara Barajas MD Primary Care Provider [phone] Encounter Details Date Type Department Care Team (Latest Contact Info) Description 05/01/2025 Travel Social History Tobacco Use Types Packs/Day [...] is your housing situation today? I have benjaminhuyen mijares 11/20/[address] you [...] t he electric, gas, oil or water [employer] threatened to shut off services in your [...] to sit still 3 05/01/2025 3:19 PM [place] Rebeka Duncan MA Becoming easily annoyed or irritable 3 [...] Description 07/03/2025 10:45 AM EDT Office Visit [facility] MEDICINE [address] [place] [address] Sahara Barajas MD [address] [place], [place] [phone] documented as of this encounter Visit Diagnoses Not on filedocumented in this encounter Additional Health Concerns Assessment Noted Time PHQ-9 Depression Total Score: 14 025 10:06 AM EDT documented as of this encounter Care Teams Health Informatics Instructor Relationship Specialty Start Date End Date Sahara Barajas MD [address] [place] [address] PCP - General Family Medicine 04/06/25 documented as of this encounter
--- OUTSIDE RECORDS SUMMARY | 2025-05-01 16:22 | XMS_ITS | Clinical Summary ---
Author Organization [facility] Address [address] [place] [address] Phone Care Team Providers Care Student Finance Specialist Name Role Phone Reji Rebollar MD Primary Care Provider [phone] Allergies No known active allergies Medications No known medications Active Problems No known active problems Encounters Date Type Department Care Team Description 02/04/2025 9:50 AM EDT - 02/04/2025 12:50 PM EDT Emergency [facility] Emergency [address] [place] [phone] Nausea and vomiting, unspecified vomiting type (Primary Dx); Diarrhea, unspecified type Discharge Disposition: Home or Self Care 01/30/2025 7:56 PM EDT - 01/30/2025 9:47 PM EDT Emergency [facility] Emergency [address] [place] [phone] Abrasion (Primary Dx) Discharge Disposition: Home or Self Care from Last 3 Months Surgical History Surgery Date Site/Laterality Comments WISDOM TOOTH EXTRACTION 2014 PROCEDURE: HISTORICAL WISDOM TEETH EXTRACTION Medical History Medical History Date Comments Depression DX:Depression Anxiety state DX:Anxiety state Anemia 09/02/2018 DX:Anemia Gestational diabetes 09/13/2018 DX:Gestatio nal diabetes Family History Medical History Relation Name Comments Arthritis Maternal Grandmother Diabetes Maternal Grandmother Relation Name Status Comments Maternal Grandmother Social History Tobacco Use Types Packs/Day Years Used Date Smoking Tobacco: Never Smokeless Tobacco: Never Alcohol Use Standard Drinks/Week Comments No 0 (1 standard drink = 0.6 oz pur e alcohol) Comments Unknown Sex and Gender Information Value Date Recorded Sex Assigned at Not on file Legal Sex Female 5:05 AM EST Gender Identity Not on file Sexual Orientation Not on file Obstetrics History Last Filed Vital Signs Vital Sign Reading Time Taken Comments Blood Pressure 102/67 02/04/2025 11:03 AM EDT Pulse 85 02/04/2025 9:25 AM EDT Temperature 36.9 C (98.4 F) 02/04/2025 9:25 AM EDT Respiratory Rate 18 02/04/2025 9:25 AM EDT Oxygen Saturation 97% 02/04/2025 9:25 AM EDT Inhaled Oxygen Concentration - - Weight 73.5 kg (162 lb) 02/04/2025 9:25 AM EDT Height 149.9 cm (4' 11 ) 02/04/2025 9:25 AM EDT Body Mass Index 32.72 02/04/2025 9:25 AM EDT Plan of Treatment Health Maintenance Due Date Last Done Comments Hepatitis B Vaccines (2 of 3 - 3-dose series) 01/28/1999 1998 COVID-19 Vaccine () 05/07/2024 01/15/2022, 09/10/2021, 08/20/2021 Depression Screening 09/06/2024 Social Influencers of Health Screening 01/31/2025 Influenza Vaccine (#1) 2025 8, 07/05/2014, 08/16/2013, Additional history exists Cervical Cancer Screening: Pap Smear 01/24/2028 01/23/2025 DTaP,Tdap,and Td Vaccines (9 - Td or Tdap) 09/09/2028 09/09/2018, 02/12/2017, 08/23/2009, Additional history exists HIB Vaccines Completed 03/03/2000, 12/06, 1998, Additional history exists IPV Vaccines Completed 04/03/2003, 12/06, 1998, Additional history exists Varicella Vaccines Completed 07/26/2007, 03/21/1999 MMR Vaccines Completed 03/21/2009, 04/03/2003 HPV Vaccines Completed 08/19/2010, 12/06, 10/29/2009 Meningococcal ACWY Vaccine Aged Out 12/11/2010 N o longer eligible based on patient's age to complete this topic Hepatitis A Vaccines Completed 02/24/2013, 03/11/20 12 Gonorrhea/Chlamydia Screening Discontinued 11/28/2024 HIV Screening Completed 11/28/2024 Hepatitis C Screening Completed 11/28/2024 Meningococcal B Vaccine Aged Out No l onger eligible based on patient's age to complete this topic Pneumococcal Vaccine: Pediatrics (0 to 5 Years) and At-Risk Patients (6 to 49 Years) Aged Out No longer eligible based on patient's age to complete this topic RSV Immunization Patients Under 20 months Aged Out No longer eligible based on patient's age to complete this topic Procedures Procedure Name Priority Date/Time Associated Diagnosis Comments PIRES URINE CULTURE TUBE STAT 02/04/2025 11:42 AM EDT URINALYSIS WITH REFLEX MICROSCOPIC AND CULTURE STAT 02/04/2025 11:42 AM EDT URINALYSIS WITH REFLEX MICROSCOPIC AND CULTURE STAT 02/04/2025 11:42 AM EDT CULTURE URINE STAT 02/04/2025 11:42 AM EDT [id number], RSV, FLU A AND B QUALITATIVE RT-PCR, INTERNAL LAB STAT 02/04/2025 10:56 AM EDT POC , URINE DIAGNOSTIC STAT 02/04/2025 9:41 AM EDT CBC WITH AUTO DIFFERENTIAL STAT 02/04/2025 9:31 AM EDT LIPASE STAT 02/04/2025 9:31 AM EDT COMPREHENSIVE METABOLIC PANEL STAT 02/04/2025 9:31 AM EDT CBC AND DIFFERENTIAL STAT 02/04/2025 9:31 AM EDT XR ANKLE 3+ VIEWS RIGHT STAT 01/30/2025 8:48 PM EDT from Last 3 Months Results * (ABNORMAL) Urinalysis with reflex microscopic and culture (02/04/2025 11:42 AM EDT) Specific Amoret Urine 1.010 1.003 - 1.030 LAB URINALYSIS - AUTOMATED METHOD 02/04/2025 1:30 PM [facility] pH, Urine 6.5 5.0 - 8.0 pH LAB URINALYSIS - AUTOMATED METHOD 02/04/2025 1:30 PM [facility] Leukocytes, Urine Small(A) Negative LAB URINALYSIS - AUTOMATED METHOD 02/04/2025 1:30 PM [facility] Nitrite, Urine Negative Negative LAB URINALYSIS - AUTOMATED METHOD 02/04/2025 1:30 PM [facility] Protein, Urine Negative <=Trace mg/dL LAB URINALYSIS - AUTOMATED METHOD 02/04/2025 1:30 PM [facility] Glucose, Urine Negative Negative mg/dL LAB URINALYSIS - AUTOMATED METHOD 02/04/2025 1:30 PM [facility] Ketones, Urine Negative Negative mg/dL LAB URINALYSIS - AUTOMATED METHOD 02/04/2025 1:30 PM [facility] Urobilinogen, Urine 0.2 0.2 - 1.0 mg/dL LAB URINALYSIS - AUTOMATED METHOD 02/04/2025 1:30 PM [facility] Bilirubin, Urine Negative Negative LAB URINALYSIS - AUTOMATED METHOD 02/04/2025 1:30 PM [facility] Blood, Urine Negative Negative LAB URINALYSIS - AUTOMATED METHOD 02/04/2025 1:30 PM [facility] RBC, Urine 0.5 0 - 4 /HPF LAB URINALYSIS - AUTOMATED METHOD 02/04/2025 1:30 PM [facility] WBC, Urine 11.8(H) 0 - 4 /HPF LAB URINALYSIS - AUTOMATED METHOD 02/04/2025 1:30 PM [facility] Squamous Epithelial, Urine 57 0 - 60 /LPF LAB URINALYSIS - AUTOMATED METHOD 02/04/2025 1:[address] [facility] Bacteria, Urine Negative Negative /HPF LAB URINALYSIS - AUTOMATED METHOD 02/04/2025 1:[address] [facility] Hyaline Casts, Urine 1.6 0 - 3 /LPF LAB URINALYSIS - AUTOMATED METHOD 02/04/2025 1:[address] [facility] Urine Urine specimen obtained by clean catch procedure / Unknown Non-blood Collection / Unknown 02/04/2025 11:42 AM EDT 02/04/2025 12:17 PM EDT Tanmay Bartholomew MD LAB URINE ORDERABLES Final Result Performing Organization Address [facility]/ZIP Co de Phone Number [facility] [address] [place] [address], [place] [phone] * Pires urine culture tube (02/04/2025 11:42 AM EDT) Extra Tube Hold for add-ons. 02/04/2025 2:[address] [facility] Comment:Auto resulted. Urine Urine specimen obtained by clean catch procedure / Unknown Non-blood Collection / Unknown 02/04/2025 11:42 AM EDT 02/04/2025 12:17 PM EDT Tanmay Bartholomew MD LAB URINE ORDERABLES Final Result Performing Organization Address City/[facility]/ZIP Co de Phone Number [facility] [address] [place] [address], [place] [phone] * Culture urine (02/04/2025 11:42 AM EDT) Culture, Urine No growth 02/05/2025 10:[address] [facility] Urine Urine specimen obtained by clean catch procedure / Unknown Non-blood Collection / Unknown 02/04/2025 11:42 AM EDT 02/04/2025 1:30 PM EDT us Tanmay Bartholomew MD LAB MICROBIOLOGY - GENERAL ORDERABLES Final Result [facility] [address] [place] [address], * [id number], RSV, Influenza A and B qualitative RT-PCR (02/04/2025 10:56 AM EDT) Influenza A PCR Not Detected Not Detected LAB MICROBIOLOGY METHOD 02/04/2025 12:[address] [facility] Influenza B PCR Not Detected Not Detected LAB MICROBIOLOGY METHOD 02/04/2025 12:[address] [facility] RSV PCR Not Detected Not Detected LAB MICROBIOLOGY METHOD 02/04/2025 12:[address] [facility] SARS COV-2 Not Detected Not Detected LAB MICROBIOLOGY METHOD 02/04/2025 12:[address] [facility] Swab Both anterior nares / Unknown Non-blood Collection / Unknown 02/04/2025 10:56 AM EDT 02/04/2025 11:[address] [facility] - 02/04/2025 12:12 PM EDT Disclaimer: Testing was performed using the [employer] GeneXpert Xpress SARS-CoV-2 _Flu_RSV PLUS PCR assay. The manner in which this information is used to guide patient care is the responsibility of the healthcare provider. Results should be correlated with the clinical history, epidemiological data, and other data available to the clinician evaluating the patient. Negative results do not preclude infection. This test has been authorized by the FDA under an Emergency Use Authorization (EUA). This test is only authorized for the duration of time the declaration that circumstances exist justifying the authorization of the emergency use of in vitro diagnostic tests for detection of SARS-CoV-2 virus and/or diagnosis of COVID-19 infection under section 564 (b) (1) of the Act, 21 U.S.C 360bbb-3 (b) (1), unless the authorization is terminated or revoked sooner. Reference Range: Not Detected Fact sheet for Healthcare providers can be found at https://www.fda.gov/media/241882/download. Fact sheet for Healthcare patients can be found at https://www.fda.gov/media/305601/download. Supriya GARCIA LAB MICROBIOLOGY - GENER AL ORDERABLES Final Result [facility] [address] [place] [address], * POC , urine manually resulted (02/04/2025 9:41 AM EDT) Pathologist [facility] HCG, Ur POC Negative Negative POC hCG Int QC Pass? Yes Yes Urine Urine specimen obtained by clean catch procedure / Unknown 02/04/2025 9:41 AM EDT Tanmay Bartholomew MD POINT OF CARE TEST ENTER/ED IT ORDERABLES Final Result * (ABNORMAL) CBC auto differential (02/04/2025 9:31 AM EDT) [facility] WBC 8.4 4.8 - 10.8 K/mcL LAB HEMETOLOGY METHOD 02/04/2025 10:[address] [facility] RBC 5.00(H) 3.80 - 4.80 M/mcL LAB HEMETOLOGY METHOD 02/04/2025 10:00 AM [facility] Hemoglobin 11.7 11.5 - 16.0 g/dL LAB HEMETOLOGY METHOD 02/04/2025 10:00 AM [facility] Hematocrit 38.2 35.0 - 47.0 % LAB HEMETOLOGY METHOD 02/04/2025 10:00 AM [facility] MCV 77.2(L) 79.0 - 98.0 FL LAB HEMETOLOGY METHOD 02/04/2025 10:00 AM [facility] MCH 23.6(L) 27.0 - 32.0 pcg LAB HEMETOLOGY METHOD 02/04/2025 10:00 AM [facility] MCHC 30.6(L) 32.0 - 37.0 g/dL LAB HEMETOLOGY METHOD 02/04/2025 10:00 AM [facility] RDW 18.1(H) 11.0 - 15.0 % LAB HEMETOLOGY METHOD 02/04/2025 10:00 AM [facility] Platelets 290 130 - 400 K/mcL LAB HEMETOLOGY METHOD 02/04/2025 10:00 AM [facility] MPV 10.7 7.0 - 11.0 FL LAB HEMETOLOGY METHOD 02/04/2025 10:00 AM [facility] NRBC 0.0 <1.0 % LAB HEMETOLOGY METHOD 02/04/2025 10:00 AM [facility] NRBC Absolute 0.00 <0.10 K/mcL LAB HEMETOLOGY METHOD 02/04/2025 10:00 AM [facility] Neutrophils Relative 58.2 % LAB HEMETOLOGY METHOD 02/04/2025 10:00 AM [facility] Lymphocytes Relative 21.9 % LAB HEMETOLOGY METHOD 02/04/2025 10:00 AM [facility] Monocytes Relative 6.2 % LAB HEMETOLOGY METHOD 02/04/2025 10:00 AM [facility] Eosinophils Relative 12.9 % LAB HEMETOLOGY METHOD 02/04/2025 10:00 AM [facility] Basophils Relative 0.6 % LAB HEMETOLOGY METHOD 02/04/2025 10:[address] [facility] Immature Granulocytes Relative 0.2 % LAB HEMETOLOGY METHOD 02/04/2025 10:[address] [facility] Neutrophils Absolute 4.90 1.50 - 7.00 K/[facility] LAB HEMETOLOGY METHOD 02/04/2025 10:00 AM [facility] Lymphocytes Absolute 1.85 1.00 - 5.00 K/[facility] LAB HEMETOLOGY METHOD 02/04/2025 10:[address] [facility] Monocytes Absolute 0.52 0.20 - 1.00 K/[facility] LAB HEMETOLOGY METHOD 02/04/2025 10:00 AM [facility] Eosinophils Absolute 1.09(H) 0.00 - 0.50 K/[facility] LAB HEMETOLOGY METHOD 02/04/2025 10:00 AM [facility] Basophils Absolute 0.05 0.00 - 0.20 K/[facility] LAB HEMETOLOGY METHOD [facility] Immature Granulocytes Absolute 0.02 0.00 - 0.03 K/[facility] LAB HEMETOLOGY METHOD 02/04/2025 10:00 AM [facility] Blood Venous blood specimen / Unknown Venipuncture / Unknown 02/04/2025 9:31 AM EDT 02/04/2025 9:56 AM EDT us Tanmay Bartholomew MD LAB BLOOD ORDERABLES Final Result [facility] [address] [place] [address], * Lipase (02/04/2025 9:31 AM EDT) Lipase 37 13 - 75 unit/L LAB CHEMISTRY METHOD 02/04/2025 10:[address] [facility] Blood Venous blood specimen / Unknown Venipuncture / Unknown 02/04/2025 9:31 AM EDT 02/04/2025 9:56 AM EDT us Tanmay Bartholomew MD LAB BLOOD ORDERABLES Final Result [facility] [address] [place] [address], * Comprehensive metabolic panel (02/04/2025 9:31 AM EDT) [facility] Sodium 136 133 - 145 mmol/L LAB CHEMISTRY METHOD 02/04/2025 10:30 AM [facility] Potassium 4.2 3.5 - 5.5 mmol/L LAB CHEMISTRY METHOD 02/04/2025 10:30 AM [facility] Chloride 106 96 - 110 mmol/L LAB CHEMISTRY METHOD 02/04/2025 10:30 AM [facility] CO2 25 21 - 32 mmol/L LAB CHEMISTRY METHOD 02/04/2025 10:30 AM [facility] Anion Gap 5 3 - 11 LAB CHEMISTRY METHOD 02/04/2025 10:30 AM [facility] Glucose 92 70 - 100 mg/dL LAB CHEMISTRY METHOD 02/04/2025 10:30 AM [facility] BUN 11 5 - 25 mg/dL LAB CHEMISTRY METHOD 02/04/2025 10:30 AM [facility] Creatinine 0.81 0.50 - 1.10 mg/dL LAB CHEMISTRY METHOD 02/04/2025 10:30 AM [facility] eGFR 103 >=60 mL/min/1. 73m2 LAB CHEMISTRY METHOD 02/04/2025 10:30 AM [facility] Comment:Calculation based on the Chronic Kidney Disease Epidemiology Collaboration (CKD-EPI) equation refit without adjustment for race. BUN/Creatinine Ratio 13.6 LAB CHEMISTRY METHOD 02/04/2025 10:[address] [facility] Calcium 9.3 8.5 - 10.5 mg/dL LAB CHEMISTRY METHOD 02/04/2025 10:[address] [facility] AST (SGOT) 17 10 - 42 unit/L LAB CHEMISTRY METHOD 02/04/2025 10:30 AM [facility] ALT (SGPT) 52 10 - 60 unit/L LAB CHEMISTRY METHOD 02/04/2025 10:[address] [facility] Alkaline Phosphatase 77 42 - 121 unit/L LAB CHEMISTRY METHOD 02/04/2025 10:30 AM [facility] Total Protein 7.8 6.0 - 8.0 g/dL LAB CHEMISTRY METHOD 02/04/2025 10:30 AM [facility] Albumin 4.1 3.2 - 5.0 g/dL LAB CHEMISTRY METHOD 02/04/2025 10:30 AM [facility] Total Bilirubin 0.9 0.0 - 1.4 mg/dL LAB CHEMISTRY METHOD 02/04/2025 10:30 AM [facility] Blood Venous blood specimen / Unknown Venipuncture / Unknown 02/04/2025 9:31 AM EDT 02/04/2025 9:56 AM EDT Tanmay Bartholomew MD LAB BLOOD ORDERABLES Final Result [facility] [address] [place] [address], * XR Ankle 3+ Views Right (01/30/2025 8:48 PM EDT) Anatomical Region Laterality Modality Lower Extremities, Ankle Right Radiogr aphic Imaging 01/31/2025 8:12 AM EDT Impressions 01/31/2025 8:12 AM EDT Normal examination. Code 65350 -------- FINAL REPORT -------- Dictated By: Nikhil Jacob Dictated Date: 01/31/2025 08:12 ET Assigned Physician: Nikhil Jacob Reviewed and Electronically Signed By: Nikhil Jacob Signed Date: 01/31/2025 08:12 ET Workstation ID: [id number] Transcribed By: Self Edit Transcribed Date: 01/31/2025 08:12 ET Narrative 01/31/2025 8:12 AM EDT HISTORY: The patient is a 24-year-old female with pain in the right ankle following trauma. FINDINGS: AP, lateral, and oblique views of the right ankle are obtained. The study demonstrates no fracture, dislocation, arthritic change, or other bony abnormality. No soft tissue abnormality is seen. Procedure Note Nikhil Jacob MD - 01/31/2025 HISTORY: The patient is a 24-year-old female with pain in the right anklefollowing trauma. FINDINGS: AP, lateral, and oblique views of the right ankle are obtained.The study demonstrates no fracture, dislocation, arthritic change, orother bony abnormality. No soft tissue abnormality is seen. IMPRESSION: Normal examination. Code 27598 -------- FINAL REPORT -------- Dictated By: Nikhil Jacob Dictated Date: 01/31/2025 08:12 ET Assigned Physician: Nikhil Jacob Reviewed and Electronically Signed By: Nikhil Jacob Signed Date: 01/31/2025 08:12 ET Workstation ID: [id number] Transcribed By: Self Edit Transcribed Date: 01/31/2025 08:12 ET Sol[facility] GARCIA IMG XR PROCEDURES Final Resul t from Last 3 Months Insurance MEDICAID - [place] Care Teams Student Finance Specialist Relationship Specialty Start Date End Date Reji Rebollar MD [address] [place] [address] Dr L[place] PCP - General Internal Medicine 10/22/20
--- OUTSIDE RECORDS SUMMARY | 2025-05-01 16:22 | XMS_ITS | Encounter Summary ---
Author Organization [employer] Address [address] [place] [address] Care Team Providers Care Commercial Credit Portfolio Manager Name Role Phone Sahara Barajas MD Primary Care Provider [phone] Encounter Details Date Type Department Care Team (Late st Contact Info) Description 04/11/2025 Orders Only [facility] MED[facility]INE [address], [place] [id number] Cyndee De Leon MD [address] [place] [address] Social History Tobacco Use Types Packs/Day Years [...] your housing situation today? I have benjamin sing 11/20/[address] you li [...] PM EDT documented as of this encounter Plan of Treatment Upcoming Encounters Date Type Department Care Team (Late st Contact Info) Description 07/03/2025 10:45 AM EDT Office Visit [facility] MED[facility]INE [address] [place] [address] Sahara Barajas MD [address] [place] [address] documented as of this encounter Visit Diagnoses Not on filedocumented in this encounter Additional Health Concerns Assessment Noted Time PHQ-9 Depression Total Score: 0 01/24/20 8:59 AM EDT documented as of this encounter Care Teams Commercial Credit Portfolio Manager Relationship Specialty Start Date End Date Sahara Barajas MD [address] [place] [address] PCP - General Family Medicine 04/06/25 documented as of this encounter
--- OUTSIDE RECORDS SUMMARY | 2025-05-01 16:23 | XMS_ITS | Clinical Summary ---
Author Organization [employer] Address [address] [facility] [address] [place] [address] Care Team Providers Care Assembly Department Supervisor Name Role Phone Sahara Barajas MD Primary Care Provider [phone] Allergies No known active allergies Medications * This document contains information received from the source organization and may not represent a complete record from that organization. sucralfate (Carafate) 1 GM/10ML suspension TAKE 2 TEASPOONSFUL (10 ML) BY MOUTH 2 TIMES A DAY FOR 10 DAYS 024 Active omeprazole (PriLOSEC) [address] capsuleIndication s:Gastritis, presence of bleeding unspecified, unspecified chronicity, unspecified gastritis type Take 1 capsule (20 mg) by mouth before breakfast. 90 capsule 024 Active topiramate (Topamax) 25 MG tabletIndications :Class 1 obesity Take 1 tablet (25 mg) by mouth at bedtime. 60 tablet 2 025 2024 Active traZODone (Desyrel) 50 MG tablet TAKE 1 TABLET BY MOUTH AT BEDTIME 90 tablet 025 Active ondansetron ODT (Zofran-ODT) 4 MG disintegrating tablet LET 1 TABLET DISSOLVE UNDER THE TONGUE THREE TIMES DAILY NEEDED FOR NAUSEA OR VOMITING. 025 Active famotidine (Pepcid) 20 MG tablet TAKE 1 TABLET BY MOUTH 2 (TWO) TIMES A DAY IF NEEDED FOR INDIGESTION FOR UP TO 15 DAYS. 025 Active Tirzepatide 5 MG/0.5ML solution auto-injector Inject 5 mg under the skin 1 (one) time per week. 2 mL 1 025 Active hydrOXYzine HCl (Atarax) 25 MG tablet TAKE 1 TABLET BY MOUTH EVERY 6 HOURS NEEDED FOR ANXIETY 120 tablet 08/13/2 025 Active Tirzepatide-Weigh t Management (Zepbound) 2.5 MG/0.5ML solution auto-injector Inject 0.5 mL (2.5 mg) under the skin 1 (one) time per week. 2 mL 3 025 2024 Discontinued(D ose adjustment) hydrOXYzine HCl (Atarax) 25 MG tablet Take 1 tablet (25 mg) by mouth every 6 (six) hours if needed for anxiety. 120 tablet 025 2024 Discontinued Active Problems Problem Noted Date Diagnosed Date Class 1 obesity 01/23/2025 Assessment & Plan (03/13/2025 5:24 PM EDT): BMI 34.4 Minimal weight loss with life style changes Patient interested in weight loss medication Reviewed indications for pharmacotherapy with patient - treatment for patient w/ obesity or a patient with a BMI > 27 w/ CV risk factors who have failed lifestyle modifications alone. Medications are always prescribed in combination with ongoing lifestyle modification; and will be titrated up from the lowest dose. Discussed weight loss medication - Mounjaro with patient and agreed to start. No history of medullary thyroid cancer or MEN, no current . Could not tolerate Topimax due to side effect of headache. Phentermine not indicated due to uncontrolled anxiety. Reviewed mechanism of action with patient. Discussed side effects with patient: nausea, vomiting, stomach pain Recommended to decrease soda and sugary beverage consumption. Recommended at least 20 g per meal of protein to assist with satiety. Recommended at least 150 min/week of moderate intensity exercise. Patient advised to stop medication if become Assessment & Plan (01/24/2025 9:43 AM EDT): BMI 34 5 pounds weight loss with life style changes Patient interested in weight loss medication Reviewed indications for pharmacotherapy with patient - treatment for patient w/ obesity or a patient with a BMI > 27 w/ CV risk factors who have failed lifestyle modifications alone. Always prescribed in combination with ongoing lifestyle modification; and will be titrated up from the lowest dose. Discussed weight loss medications - phentermine and Topimax with patient and agreed to start Topimax 25mg nightly. Phentermine contra-indicated due to history of uncontrolled anxiety. Recommended to decrease soda and sugary beverage consumption. Recommended at least 20 g per meal of protein to assist with satiety. Recommended at least 150 min/week of moderate intensity exercise. Patient advised to stop medication if become Epigastric discomfort 01/23/2025 Family history of gastric cancer 01/23/2025 Unwanted fertility 01/23/2025 Moderate recurrent major depression 11/28/2024 Assessment & Plan (12/04/2024 10:31 AM EDT): Connected patient with Skyler Duncan for immediate safety check and referral to OP therapy and prescriber services Complimented patient on her ability/willingness to get into psych care and self-awareness around that Personal history of nonsuicidal self-harm 2024 JENNY (generalized anxiety disorder) 11/28/2024 Gastritis 06/13/2024 Assessment & Plan (06/13/2024 10:25 [...] , third trimester 03/11/2018 Overview (01/23/2025): 1. [facility] site: [facility] 2. Delivery site: [facility] 3. Dating criteria: LMP confirmed [...] Bottle feed: breast E. Baby's name -Carlos Lemos Circumcision - yes Rh negative state in antepartum period 8 Overview (01/23/2025): Rhogam received 08/29/2018 Pt currently 29w0d Resolved Problems Problem Noted Date Diagnosed Date Resolved Date Depressive disorder 02/26/2012 03/13/20 25 Overweight 02/26/2012 03/13/2025 Encounters * This document contains information received from the source organization and may not represent a complete record from that organization. Date Type Department Care Team Description 05/01/2025 2:30 PM EDT Office Visit [facility] [address] [place] [phone] Sahara Barajas MD Moderate recurrent major depression (CMS/HCC) (Primary Dx); JENNY (generalized anxiety disorder); Chronic pain of both knees; History of gestational diabetes 05/01/2025 Travel 04/17/2025 Refill [facility] [address] [place] [address] Brandon Cotto MD 04/12/2025 Telephone [facility] [address] [place] [phone] Sahara Barajas MD Document Scanned in Chart 04/11/2025 Orders Only [facility] [address] [place] [phone] Cyndee De Leon MD 04/09/2025 Telephone [facility] [address] [place] [phone] Sahaar Barajas MD Medication Question 04/06/2025 Travel 03/28/2025 Telephone [facility] [address] [place] [phone] Cyndee De Leon MD Change PCP 03/21/2025 Travel 03/21/2025 Telephone [facility] [address] [place] [phone] Cyndee De Leon MD telephone call 03/21/2025 Telephone [facility] [address] [place] [phone] Cyndee De Leon MD Appointment Confirmation; Appointment Request 03/20/2025 6:00 PM EDT Office Visit [facility] [address] [place] [phone] Brandon Cotto MD Anxiety (Primary Dx) 03/19/[address] [phone] Cyndee De Leon MD Prior Authorization ( PA: Brandan) 03/13/2025 11:30 AM EDT Telemedicine [facility] [address] [place] [phone] Cyndee De Leon MD Class 1 obesity (Primary Dx); Anxiety; Personal history of nonsuicidal self-harm 03/13/2025 Travel 03/12/[address] [phone] Cyndee De Leon MD Chart prep 02/24/[address] [phone] Cyndee De Leon MD 02/02/[address] [phone] Cyndee De Leon MD Nurse Triage from Last 3 Months Immunizations Immunization Administration [...] Mass Index 32.19 05/01/2025 2:42 PM EDT Plan of Treatment Upcoming Encounters Date Type Department Care Team (Late st Contact Info) Description 07/03/2025 10:45 AM EDT Office Visit [facility] [address] [place] [address] Sahara Barajas MD [address] [place] [address] Health Maintenance Due Date Last Done Comments Hepatitis B Vaccines (2 of 3 - 3-dose series) 01/28/1999 2000, 08/15/1995, 1995 COVID-19 Vaccine ( season) 2024 01/15/2022, 09/10/2021, 08/20/2021 Influenza Vaccine (#1) 2025 8, 07/05/2014, 08/16/2013, Additional history exists Depression Monitoring 10/17/2025 04/16/2025, 025 SDOH Screening 11/20/2025 11/20/2024 Disability Screening 11/28/2025 11/28/2024 Alcohol/Substance Use Screening 12/04/2025 12/04/2024 Family Planning (PISQ) 12/04/2025 12/04/2024 Tobacco Screening 05/01/2026 05/01/2025 Pap Smear 01/24/2028 01/23/2025 DTaP/Tdap/Td Vaccines (9 - Td or [...] Completed 02/24/2013, 03/11/20 12 HIV Screening Completed 11/28/2024, 07/23/2020 Hepatitis C Screening Completed 11/28/2024 Meningococcal B Vaccine Aged Out No l onger eligible based on patient's age to complete this topic Pneumococcal Vaccine: Pediatrics (0 to 5 Years) and At-Risk Patients (6 to 49) Years Aged Out No longer eligible based on patient's age to complete this topic RSV under 20 months Aged Out No longe r eligible based on patient's age to complete this topic Rotavirus Vaccines Aged Out No longer eligible based on patient's age to complete this topic Procedures Procedure Name Priority Date/Time Associated Diagnosis Comments PAP SMEAR Routine 01/23/2025 9:27 AM EDT HEPATITIS C AB W/REFL TO HCV RNA, QN, PCR Routine 11/28/2024 11:30 AM EDT Sexually transmitted infection HIV 1/2 ANTIGEN/ANTIBODY, FOURTH GENERATION W/RFL Routine 11/28/2024 11:30 AM EDT Sexually transmitted infection from Last 3 Months or Most Recently Relevant to Health Maintenance Results * Pap Smear (01/23/2025 9:27 AM EDT) 01/23/2025 9:27 AM EDT 01/24/2025 9:30 AM EDT [facility] - 01/26/2025 10:30 AM EDT ----- ------- Name: Barbara Harrington Age/Sex: 24/F : 2000 Unit#: [id number] Attend Dr: Cyndee De Leon Re01/23/25 Status: DEP REF Location: [facility] Disch: ----- ------- SPEC : [id number] RECD: 01/24/25 STATUS: LACY MCLEAN NUM: [id number] MARIANN: 01/23/[address] [facility] [address]: Cyndee De Leon ENTERED: 01/24/25-3 SP TYPE: Pap Smr OT DR: ORDERED: Pap Smear Interpretation Satisfactory for evaluation. Negative for intraepithelial lesion or malignancy. No endocervical cells seen. Coccobacilli consistent with shift in vaginal leigh ann. HPV High Risk: Positive HPV Genotyping 16: Negative HPV Genotyping 18: Negative Clinical Information LMP: Unknown date Previous PAP test: Unknown date/findings Material Received ThinPrep-Cervical ----- ------- Signed (signature on file) ANGELIC Bello (ASCP) 01/26/25 1030 ----- ------- END OF REPORT Cyndee De Leon MD LAB CYTOLOGY ORDERABLES Final Result Performing Organization Address [facility] de Phone Number [facility] [address] [place] [address] [phone] * Hepatitis C Antibody with Reflex to HCV, RNA, Quantitative, Real-Time PCR (11/28/2024 11:30 AM EDT) Hepatitis C Antibody Nonreactive Nonreactive [facility] Comment:Antibodies to HCV no t detected; does not exclude early acuteHCV infection. Blood Venous blood specimen / Unknown 11/28/2024 11:30 AM EDT 11/28/2024 1:38 PM EDT Cyndee De Leon MD LAB BLOOD ORDERABLES Final Res ult Performing Organization Address [facility]/ZIP Co de Phone Number [facility] [address] [place] [address] [phone] * HIV-1/2 Antigen and Antibodies, Fourth Generation, with Reflexes (11/28/2024 11:30 AM EDT) HIV AB/AG Nonreactive Nonreactive [facility] Comment:HIV-1 p24 Ag and/or HIV-1/HIV-2 Ab not detected.A test result that is nonreactive does not exclude thepossibility of exposure to or infection with HIV-1 and/orHIV-2. Nonreactive results in this assay for individualswith prior exposure to HIV-1 and/or HIV-2 may be due toantigen and antibody levels that are below the limit ofdetection of this assay.The [employer] HIV Ag/Ab Combo assay result andsupplemental assay results should be interpreted inconjunction with the patient's clinical presentation,history and other laboratory results. If the results areinconsistent with clinical evidence, additional testing issuggested to confirm the result. Blood Venous blood specimen / Unknown 11/28/2024 11:30 AM EDT 11/28/2024 1:38 PM EDT us Cyndee De Leon MD LAB BLOOD ORDERABLES Final Res ult [facility] [address] [place] [phone] from Last 3 Months or Most Recently Relevant to Health Maintenance Insurance [employer] C[employer] Care Teams Assembly Department Supervisor Relationship Specialty Start Date End Date Sahara Barajas MD [address] [place] [phone] PCP - General Family Medicine 04/06/25
== END 2025-05-01 15:26 | disposition home or self-care (01) ==
LOC: HO.HHCX 15:25
PROVIDERS: PCP Family Medicine; Visit Provider Family Medicine
DX: M25.561 Pain in right knee (principal); M25.562 Pain in left knee; G89.29 Other chronic pain
CPT/HCPCS: 73562

== ENCOUNTER → 2025-05-01 15:30 | Outpatient (BNV) | payer MEDICAID, SELFPAY | PROVIDERS: PCP Family Medicine; Visit Provider Radiology Diagnostic Radiology | DX: M25.562 Pain in left knee (principal); M25.561 Pain in right knee | CPT/HCPCS: 73562 ==

== ENCOUNTER 2025-05-31 10:55 | Outpatient (REF) | payer MEDICAID, SELFPAY ==
[2025-05-31 13:18] LABS: MANUAL DIFF FLAG NO
[2025-05-31 13:26] LABS: Hematocrit 39.2 % (37.0-47.0); Hemoglobin 12.5 g/dl (12.0-16.0); Imm Gran Abs Auto 0.01 X10*3/uL (0.00-0.03); Imm Gran Pct Auto 0.2 % (0.0-0.4); Lymphocytes Absolute Auto 1.7 X10*3/uL (1.2-4.9); Mean Corpuscular HGB Conc 31.9 g/dl (31.0-35.0); Mean Corpuscular Hemoglobin 25.6 pg (27.0-33.0); Mean Corpuscular Volume 80.3 fL (80.0-98.0); NRBC Abs Auto 0.020 X10*3/uL (0.0-0.012); NRBC Pct Auto 0.4 /100WBC (0.0-0.2); Platelet Count 288 X10*3/uL (160-400); Red Blood Count 4.88 X10*6/uL (4.20-5.50); Reticulocytes Absolute 0.032 X10*6/uL (0.026-0.095); White Blood Count 5.4 X10*3/uL (4.8-10.8)
[2025-05-31 13:35] LABS: Hemoglobin A1C 108.4363 umol/L
[2025-05-31 13:51] LABS: Iron 41 mcg/dL (30-160); Percent Iron Saturation 13 % (15-50); Total Iron Binding Capacity 311 mcg/dL (228-428); Unsaturated Iron Binding 270 ug/dL
[2025-05-31 13:55] LABS: Alanine Aminotransferase 13 U/L (0-31); Albumin Level 4.7 g/dL (3.5-5.0); Alkaline Phosphatase 67 U/L (39-117); Anion Gap 12 (12-20); Aspartate Amino Transferase 18 U/L (5-31); Blood Urea Nitrogen 8 mg/dL (9-16); Calcium 9.5 mg/dL (8.4-10.2); Carbon Dioxide 25 mmol/L (22-29); Chloride 107 mmol/L (96-108); Cholesterol 161 mg/dL (<200); Estimated Glomerular Filt Rate > 60; HDL Cholesterol 44 mg/dL (>40); Potassium 4.3 mmol/L (3.3-5.1); Sodium 140 mmol/L (135-145); Total Protein 8.0 g/dL (6.5-8.0); Triglycerides 53 mg/dL (<150)
[2025-05-31 14:05] LABS: Folate 6.9 ng/mL (> or = 4.0); Vitamin B12 428 pg/mL (200-900)
[2025-05-31 14:19] LABS: Ferritin 9 ng/mL (10-122)
== END 2025-05-31 10:56 | disposition home or self-care (01) ==
LOC: HO.HHCL 10:55
PROVIDERS: PCP Family Medicine; Referring Provider Registered Nurse Psychiatric/Mental Health; Visit Provider Family Medicine
DX: D50.9 Iron deficiency anemia, unspecified (principal); Z86.32 Personal history of gestational diabetes; Z79.899 Other long term (current) drug therapy
CPT/HCPCS: 36415; 80053; 80061; 82248; 82607; 82728; 82746; 83036; 83540; 84443; 85025; 85045